=== PATIENT | female | born 1985 | race Caucasian/White ===

== ENCOUNTER 2020-12-15 14:17 | Emergency (ER) | payer MEDICAID, OTHER ==
[2020-12-15 14:46] VITALS: PULSE 76
[2020-12-15] MEDS ORDERED: Furosemide 40 MG/4 ML VIAL IVPUSH ONE (14:49)
[2020-12-15 15:19] VITALS: BP 123/89
[2020-12-15 15:21] LABS: ANION GAP 10.4 mEq/L (7-13); CHLORIDE,CL 107 mmol/L (98-107); SODIUM,NA 143 mmol/L (136-145)
[2020-12-15] MEDS ORDERED: Magnesium Sulfate/Water 2 GM in Premix Bag 1 BAG IV ONE (15:38)
[2020-12-15] MEDS ORDERED: Potassium Chloride 10 MEQ Tab.ER PO ONE (15:39)
--- NOTE | 2020-12-15 16:50 | EDM.PDOC ---
Scribed by Laney Chaparro 12/15/20 [id number] for Rianna Thompson NP ED HPI GENERAL MEDICAL PROBLEM - General Chief Complaint: General Stated Complaint: swollen feet,dizziness,shaky,lower abdominal Time Seen by Provider: 12/15/20 14:36 Source of Information: Reports: Patient, RN, RN Notes Reviewed History Limitations: Reports: No Limitations - History of Present Illness INITIAL COMMENTS - FREE TEXT/NARRATIVE: Patient is a 35-year-old female who presents to ER with complaint of swelling in the feet that began on 12/13/20. States yesterday she began feeling numbness and tingling in feet/toes. States she has been elevated them but this causes more pain so sits in the chair. Tried using ELIZABETH bandages but this made it worse. She was seen in the ER in [place] 2 days ago and potassium was given for low potassium. She has a headache, but no pain elsewhere. She has shortness of breath with activity. Denies urinary symptoms. No chest pains, fever, chills, nausea, vomiting of diarrhea. Onset: Gradual Duration: Getting Worse Location: Reports: Lower Extremity, Left, Lower Extremity, Right Quality: Reports: Ache Severity: Moderate Improves with: Reports: None Worsens with: Reports: None Associated Symptoms: Reports: No Other Symptoms Bilateral Feet Pain Score (Numeric/FACES): 4 - Related Data Allergies Allergy/AdvReac Type Severity Reaction Status Date / Time cephalexin Allergy Other Verified 10/13/17 15:48 MDT codeine Allergy Nausea and Verified 10/13/17 15:48 MDT Vomiting cyclobenzaprine HCl Allergy Seizure Verified 10/13/17 15:48 MDT [From Flexeril] ketorolac tromethamine Allergy Shortness Verified 10/13/17 15:48 MDT [From Toradol] of Breath oxycodone [From OxyContin] Allergy Itching Verified 10/13/17 15:48 MDT promethazine HCl Allergy Other Verified 10/13/17 15:48 MDT [From Phenergan] tramadol Allergy Seizure Verified 10/13/17 15:48 MDT Home Meds: Home Meds Buprenorphine HCl/Naloxone HCl [Suboxone 4 mg-1 mg Sl Film] 12/15/20 [History] Promethazine [Phenergan] 05/22/21 [History] Past Medical History - Past Health History Medical/Surgical History: Denies Medical/Surgical History HEENT History: Reports: Head Cardiovascular History: Reports: None Respiratory History: Reports: None Other Respiratory History: 2013 Dece Gastrointestinal History: Reports: Hepatitis Genitourinary History: Reports: None 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 Musculoskeletal History: Reports: None Neurological History: Reports: Migraines, Seizure Psychiatric History: Reports: Anxiety Endocrine/Metabolic History: Reports: None Hematologic History: Reports: None Other Hematologic History: HIV Immunologic History: Reports: AIDS Oncologic (Cancer) History: Reports: Brain Dermatologic History: Reports: None - Infectious Disease History Infectious Disease History: Reports: Hepatitis C, HIV-Human Immunodeficiency Virus - Past Surgical History Head Surgeries/Procedures: Reports: None Cardiovascular Surgical History: Reports: None Female Surgical History: Reports: None Musculoskeletal Surgical History: Reports: None Social & Family History - Family History Family Medical History: No Pertinent Family History Immunologic: Reports: HIV - Caffeine Use Caffeine Use: Reports: Coffee - Living Situation & Occupation Living situation: Reports: , with Family Occupation: Employed ED ROS GENERAL - Review of Systems Review Of Systems: Comprehensive ROS is negative, except as noted in HPI. ED EXAM, GENERAL - Physical Exam Exam: See Below Exam Limited By: No Limitations General Appearance: Alert, WD/WN, No Apparent Distress Eye Exam: Bilateral Eye: EOMI, Normal Inspection, PERRL Ears: Normal External Exam, Normal Canal, Hearing Grossly Normal, Normal TMs Nose: Normal Inspection, Normal Mucosa, No Blood Throat/Mouth: Normal Inspection, Normal Lips, Normal Teeth, Normal Gums, Normal Oropharynx, Normal Voice, No Airway Compromise Head: Atraumatic, Normocephalic Neck: Normal Inspection, Supple, Non-Tender, Full Range of Motion Respiratory/Chest: No Respiratory Distress, Lungs Clear Cardiovascular: Normal Peripheral Pulses, Regular Rate, Rhythm, No Edema, No Gallop, No JVD, No Murmur, No Rub GI/Abdominal: Normal Bowel Sounds, Soft, Non-Tender, No Organomegaly, No Distention, No Abnormal Bruit, No Mass (Female) Exam: Deferred Rectal (Female) Exam: Deferred Back Exam: Normal Inspection, Full Range of Motion, NT Extremities: Normal Inspection, Normal Range of Motion, Non-Tender, Normal Capillary Refill, No Pedal Edema Neurological: Alert, Oriented, CN II-XII Intact, Normal Cognition, Normal Gait, Normal Reflexes, No Motor/Sensory Deficits Psychiatric: Normal Affect, Normal Mood Skin Exam: Other (blister left pinky. Pedal edema. ) Course - Vital Signs Last Recorded V/S: Last Vital Signs Temp 97.4 F 12/15/20 14:34 Pulse 76 12/15/20 14:34 Resp 16 12/15/20 14:34 BP 123/89 12/15/20 15:00 Pulse Ox 100 12/15/20 14:34 - Orders/Labs/Meds Orders: Active Orders 24 hr Category Date Time Status Magnesium Sulfate/Water [Magnesium Sulfate in Water 2 Med 12/15/20 15:38 Active GM/50 ML] 2 gm Premix Bag 1 bag IV ONETIME Medication Orders Magnesium Sulfate 2 gm/ Premix 50 mls @ 25 mls/hr IV ONETIME ONE Stop: 12/15/20 17:37 Last Admin: 12/15/20 16:04 Dose: 25 mls/hr Documented by: [email or web address] Labs: Laboratory Tests 12/15/20 12/15/20 12/15/20 Range/Units 14:51 14:51 15:12 WBC 4.3 L (5.0-10.0) 10^3/uL RBC 3.33 L (4.2-5.4) 10^6/uL Hgb 10.9 L D (12.0-16.0) g/dL Hct 32.5 L (37.0-47.0) % MCV 97.6 D (80-100) fL MCH 32.7 (27.0-34.0) pg MCHC 33.5 (33.0-35.0) g/dL Plt Count 207 (150-450) 10^3/uL Neut % (Auto) 67.9 (42.2-75.2) % Lymph % (Auto) 22.2 (20.5-50.1) % [place] % (Auto) 7.9 (2-8) % Eos % (Auto) 1.8 (1.0-3.0) % Baso % (Auto) 0.2 (0.0-1.0) % Sodium 143 (136-145) mmol/L Potassium 3.4 L (3.5-5.1) mmol/L Chloride 107 (98-107) mmol/L Carbon Dioxide 29 (21-32) mmol/L Anion Gap 10.4 (7-13) mEq/L BUN 15 (7-18) mg/dL Creatinine 0.62 (0.55-1.02) mg/dL Est Cr Clr Drug Dosing 127.76 mL/min Estimated GFR (MDRD) > 60 BUN/Creatinine Ratio 24.2 (No establ ref range) Glucose 82 (70-99) mg/dL Calcium 8.0 L (8.5-10.1) mg/dL Magnesium 1.5 L (1.8-2.4) mg/dL Total Bilirubin 0.5 (0.2-1.0) mg/dL AST 23 (15-37) U/L ALT 31 (14-59) U/L Alkaline Phosphatase 65 (46-116) U/L B-Natriuretic Peptide 37 (0-100) pg/ml Total Protein 6.5 (6.4-8.2) g/dL Albumin 3.2 L (3.4-5.0) g/dL Globulin 3.3 Albumin/Globulin Ratio 0.97 Urine Color (YELLOW) Urine Appearance (CLEAR) Urine pH (5.0-9.0) Ur Specific [place] (1.005-1.030) Urine Protein (NEGATIVE) Urine Glucose (UA) (NEGATIVE) Urine Ketones (NEGATIVE) Urine Occult Blood (NEGATIVE) Urine Nitrite (NEGATIVE) Urine Bilirubin (NEGATIVE) Urine Urobilinogen (0.2-1.0) mg/dL Ur Leukocyte Esterase (NEGATIVE) Urine RBC /HPF Urine WBC (0-5/HPF) /HPF Ur Epithelial Cells (NOT SEEN) /HPF Calcium Oxalate Crystal (NOT SEEN) /HPF Urine Bacteria (0-FEW/HPF) /HPF Urine HCG, Qual Negative Urine Opiates Screen (NEGATIVE) Ur Oxycodone Screen (NEGATIVE) Urine Methadone Screen (NEGATIVE) Ur Barbiturates Screen (NEGATIVE) U Tricyclic Antidepress (NEGATIVE) Ur Phencyclidine Scrn (NEGATIVE) Ur Amphetamine Screen (NEGATIVE) U Methamphetamines Scrn (NEGATIVE) Urine MDMA Screen (NEGATIVE) U Benzodiazepines Scrn (NEGATIVE) Urine Cocaine Screen (NEGATIVE) U Marijuana (THC) Screen (NEGATIVE) Ethyl Alcohol < 3 (0) mg/dL 12/15/20 12/15/20 Range/Units 15:12 15:12 WBC (5.0-10.0) 10^3/uL RBC (4.2-5.4) 10^6/uL Hgb (12.0-16.0) g/dL Hct (37.0-47.0) % MCV (80-100) fL MCH (27.0-34.0) pg MCHC (33.0-35.0) g/dL Plt Count (150-450) 10^3/uL Neut % (Auto) (42.2-75.2) % Lymph % (Auto) (20.5-50.1) % [place] % (Auto) (2-8) % Eos % (Auto) (1.0-3.0) % Baso % (Auto) (0.0-1.0) % Sodium (136-145) mmol/L Potassium (3.5-5.1) mmol/L Chloride (98-107) mmol/L Carbon Dioxide (21-32) mmol/L Anion Gap (7-13) mEq/L BUN (7-18) mg/dL Creatinine (0.55-1.02) mg/dL Est Cr Clr Drug Dosing mL/min Estimated GFR (MDRD) BUN/Creatinine Ratio (No establ ref range) Glucose (70-99) mg/dL Calcium (8.5-10.1) mg/dL Magnesium (1.8-2.4) mg/dL Total Bilirubin (0.2-1.0) mg/dL AST (15-37) U/L ALT (14-59) U/L Alkaline Phosphatase (46-116) U/L B-Natriuretic Peptide (0-100) pg/ml Total Protein (6.4-8.2) g/dL Albumin (3.4-5.0) g/dL Globulin Albumin/Globulin Ratio Urine Color Yellow (YELLOW) Urine Appearance Clear (CLEAR) Urine pH 6.5 (5.0-9.0) Ur Specific [place] 1.025 (1.005-1.030) Urine Protein Negative (NEGATIVE) Urine Glucose (UA) Negative (NEGATIVE) Urine Ketones Negative (NEGATIVE) Urine Occult Blood Trace-intact H (NEGATIVE) Urine Nitrite Negative (NEGATIVE) Urine Bilirubin Negative (NEGATIVE) Urine Urobilinogen 0.2 (0.2-1.0) mg/dL Ur Leukocyte Esterase Negative (NEGATIVE) Urine RBC 0-5 /HPF Urine WBC 0-5 (0-5/HPF) /HPF Ur Epithelial Cells Many H (NOT SEEN) /HPF Calcium Oxalate Crystal Few H (NOT SEEN) /HPF Urine Bacteria Few (0-FEW/HPF) /HPF Urine HCG, Qual Urine Opiates Screen Negative (NEGATIVE) Ur Oxycodone Screen Negative (NEGATIVE) Urine Methadone Screen Negative (NEGATIVE) Ur Barbiturates Screen Negative (NEGATIVE) U Tricyclic Antidepress Negative (NEGATIVE) Ur Phencyclidine Scrn Negative (NEGATIVE) Ur Amphetamine Screen Negative (NEGATIVE) U Methamphetamines Scrn Negative (NEGATIVE) Urine MDMA Screen Negative (NEGATIVE) U Benzodiazepines Scrn Negative (NEGATIVE) Urine Cocaine Screen Negative (NEGATIVE) U Marijuana (THC) Screen Negative (NEGATIVE) Ethyl Alcohol (0) mg/dL Meds: Medications Generic Name Dose Route Start Last Admin Trade Name Freq PRN Reason Stop Dose Admin Magnesium Sulfate 2 gm/ Premix 50 mls @ 25 mls/hr 12/15/20 15:38 12/15/20 16:04 IV 12/15/20 17:37 25 mls/hr ONETIME ONE Administration Discontinued Medications Generic Name Dose Route Start Last Admin Trade Name Freq PRN Reason Stop Dose Admin Furosemide 80 mg 12/15/20 14:49 12/15/20 14:58 Furosemide 40 Mg/4 Ml Vial IVPUSH 12/15/20 14:50 80 mg ONETIME ONE Administration Potassium Chloride 40 meq 12/15/20 15:39 12/15/20 16:04 Potassium Chloride 10 Meq Tab.Er PO 12/15/20 15:40 40 meq ONETIME ONE Administration Departure - Departure Time of Disposition: 16:49 Disposition: Against Medical Advice 07 Condition: Good Clinical Impression: Hypokalemia, Fluid retention in legs, Hypomagnesemia - Discharge Information *PRESCRIPTION DRUG MONITORING PROGRAM REVIEWED*: No *COPY OF PRESCRIPTION DRUG MONITORING REPORT IN PATIENT MARIZA: No Instructions: Hypomagnesemia, Hypokalemia Forms: ED Department Discharge, Refusal of Care AMA Additional Instructions: See your provider on Thursday and have labwork rechecked (Potassium and Magnesium) Sepsis Event Note (ED) - Focused Exam Vital Signs: Vital Signs Temp Pulse Resp BP Pulse Ox 12/15/20 15:00 123/89 12/15/20 14:34 97.4 F 76 16 154/101 H 100 - My Orders Last 24 Hours: My Active Orders 12/15/20 15:38 Magnesium Sulfate/Water [Magnesium Sulfate in Water 2 GM/50 ML] 2 gm Premix Bag 1 bag IV ONETIME - Assessment/Plan Last 24 Hours: My Active Orders 12/15/20 15:38 Magnesium Sulfate/Water [Magnesium Sulfate in Water 2 GM/50 ML] 2 gm Premix Bag 1 bag IV ONETIME I have read and agree with the documentation that has been completed regarding this visit. By signing this record, I attest that the documentation was completed in my physical presence and is an accurate record of the encounter.
== END 2020-12-15 16:50 | disposition left against medical advice (07) ==
LOC: DL.ED 14:17
DX: E87.6 Hypokalemia (principal); E83.42 Hypomagnesemia; Z88.1 Allergy status to other antibiotic agents; Z88.5 Allergy status to narcotic agent; Z88.8 Allergy status to other drugs, medicaments and biological substances; Z88.6 Allergy status to analgesic agent
CPT/HCPCS: 36415; 80053; 80305-QW; 80307; 81001; 81025; 83735; 83880; 85025; 96365; 96375; 99284; 99284-25; A9270-GY; J1940; J3475

== ENCOUNTER 2021-11-09 07:41 | Emergency (ER) | payer SELFPAY ==
[2021-11-09 08:08] VITALS: BP 133/96; PULSE 87
[2021-11-09 08:25] LABS: ANION GAP 9.3 mEq/L (7-13); CHLORIDE,CL 106 mmol/L (98-107); SODIUM,NA 143 mmol/L (136-145)
[2021-11-09 08:34] LABS: ACETAMINOPHEN 0 ug/mL (10-30 (Therapeutic))
== END 2021-11-09 12:38 | disposition left against medical advice (07) ==
LOC: DL.ED 07:41
DX: S00.03XA Contusion of scalp, initial encounter (principal); Z88.1 Allergy status to other antibiotic agents; Z88.5 Allergy status to narcotic agent; Z88.6 Allergy status to analgesic agent; W50.1XXA Accidental kick by another person, initial encounter
CPT/HCPCS: 36415; 70450; 72125; 80053; 80143; 80179; 80307; 83605; 85025; 99284; 99284-25